=== PATIENT | female | born 1950 | race Asian ===

== ENCOUNTER → 2020-06-06 | Outpatient (CLI) | payer BC, OTHER | LOC: INF 08:33 | PROVIDERS: ATTEND Internal Medicine | DX: Z23 Encounter for immunization (principal) | CPT/HCPCS: 96372 ==

== ENCOUNTER 2020-06-30 08:46 | Outpatient (CLI) | payer BC, OTHER | END 2020-06-30 23:59 | disposition home or self-care (01) | LOC: INF 08:46 | PROVIDERS: ATTEND Internal Medicine | DX: Z23 Encounter for immunization (principal) | CPT/HCPCS: 96372 ==